=== PATIENT | male | born 1970 | race Caucasian/White ===

== ENCOUNTER 2025-08-16 17:46 | Emergency (ER) | payer SELFPAY ==
[~2025-08-16] VITALS: Ht 165.1 cm; Wt 70.0 kg
[2025-08-16 17:51] VITALS: BP 160/84; PULSE 90; RESP 14; TEMP 36.7; O2SAT 98
== END 2025-08-16 18:11 | disposition left against medical advice (07) ==
LOC: ER 17:46
DX: T40.601A Poisoning by unspecified narcotics, accidental (unintentional), initial encounter (principal); F12.90 Cannabis use, unspecified, uncomplicated; X58.XXXA Exposure to other specified factors, initial encounter; Y93.89 Activity, other specified; Y92.89 Other specified places as the place of occurrence of the external cause; Y99.8 Other external cause status
CPT/HCPCS: 99283